=== PATIENT | male | born 1965 | race Caucasian/White ===

== ENCOUNTER 2018-09-04 07:46 | Emergency (ER) | payer BC ==
[2018-09-04] MEDS ORDERED: Sulfameth/Trimethoprim DS 800-160mg TAB ONE (08:14)
[2018-09-04] MEDS ORDERED: Adacel (T-DAP) 0.5 ML VIAL ONE (08:14)
[2018-09-04] MEDS ORDERED: Bacitracin Zinc 1 Packet ONE (08:26)
== END 2018-09-04 08:40 | disposition home or self-care (01) ==
LOC: BURERS 07:46
DX: L03.012 Cellulitis of left finger (principal); I10 Essential (primary) hypertension
CPT/HCPCS: 26010; 90471; 90715

== ENCOUNTER 2018-09-06 11:03 | Emergency (ER) | payer BC ==
[2018-09-06] MEDS ORDERED: Dicyclomine 20 MG TAB ONE (11:29)
[2018-09-06] MEDS ORDERED: Ketorolac Tromethamine 30 MG/ML VIAL ONE (12:09)
[2018-09-06 12:32] LABS: #Basophils 0.1 thou/uL (0.0-0.2); #Eosinphils 0.3 thou/uL (0.0-0.7); #Lymphocytes 0.2 thou/uL (1.20-3.40); #Monocytes 0.6 thou/uL (0.11-0.59); #Neutrophils 13.4 thou/uL (1.40-6.50); %Basophils 0.6 % (0.0-1.0); %Eosinophils 2.3 % (0.0-10.0); %Lymphocytes 1.6 % (21.0-51.0); %Monocytes 4.3 % (0.0-10.0); %Neutrophils 91.3 % (42.0-75.0); Hemoglobin 15.9 g/dL (14.0-18.0); Mean Corpuscular HGB CONC 34.8 g/dL (32.0-36.0); Mean Corpuscular Hemoglobin 31.4 pg (27.0-31.0); Mean Corpuscular Volume 90.1 fL (78.0-98.0); Mean Platelet Volume 7.1 fL (7.4-10.4); Platelet Count 228 thou/uL (130-400); RBC Distribution Width 11.1 % (11.5-14.5); Red Blood Cell (RBC) Count 5.07 mill/uL (4.70-6.10); White Blood Cell (WBC) Count 14.7 thou/uL (4.8-10.8)
[2018-09-06 12:38] LABS: ALT (SGPT) 24 U/L (8-55); AST (SGOT) 14 U/L (5-34); Albumin 3.7 g/dL (3.5-5.0); Alkaline Phosphatase 63 U/L (40-150); Anion Gap 15 mmol/L (10-20); BUN (Urea Nitrogen) 37 mg/dL (8.4-25.7); Bilirubin, Total 0.6 mg/dL (0.2-1.2); Calc. Creatinine Clearance 0 mL/min (70-130); Calcium 9.3 mg/dL (7.8-10.44); Carbon Dioxide 21 mmol/L (22-29); Chloride 100 mmol/L (98-107); Estimated GFR-MDRD 31; Globulin 3.3 g/dL (2.4-3.5); Glucose 135 mg/dL (70-105); Potassium 3.3 mmol/L (3.5-5.1); Sodium 133 mmol/L (136-145)
[2018-09-06] MEDS ORDERED: Piperacillin/Tazobactam 3.375 GM VIAL ONE ×2 (12:45→12:47)
[2018-09-06] MEDS ORDERED: Sodium Chloride 0.9% 100 ML ONE (12:47)
--- NOTE | 2018-09-06 14:30 | RAD ---
CHEST ONE VIEW: History: Chest pain. Seizure. FINDINGS: Cardiac silhouette is magnified by projection. Pulmonary vasculature is unremarkable. Mediastinum is midline. No lobar consolidation or evidence of pneumothorax. IMPRESSION: No active cardiopulmonary abnormalities are demonstrated. POS: [facility]
== END 2018-09-06 15:00 | disposition short-term general hospital (02) ==
LOC: BURERS 11:03
DX: A41.9 Sepsis, unspecified organism (principal); E86.0 Dehydration; I10 Essential (primary) hypertension
CPT/HCPCS: 36415; 71045; 80053; 83605; 85025; 87040; 87804; 96361; 96365; 96367; 96375; J1885; J2543; J3370; J7050

== ENCOUNTER 2020-06-27 19:27 | Emergency (ER) | payer BC ==
[2020-06-27] MEDS ORDERED: Ketorolac Tromethamine 30 MG/ML VIAL ONE (20:12)
== END 2020-06-27 20:20 | disposition home or self-care (01) ==
LOC: BURERS 19:27
DX: M25.441 Effusion, right hand (principal); M25.431 Effusion, right wrist; M79.641 Pain in right hand; M79.644 Pain in right finger(s); I10 Essential (primary) hypertension; E66.9 Obesity, unspecified; I48.91 Unspecified atrial fibrillation
CPT/HCPCS: 96372; 99283; J1885